=== PATIENT | male | born 1960 | race Caucasian/White ===

== ENCOUNTER 2019-10-06 11:56 | Inpatient (IN) ==
[2019-10-06] MEDS ORDERED: *HR* LORazepam 1 MG TABLET PO ONE (12:01)
[2019-10-06 12:28] LABS: Basophils # 0.1 K/mcL (0.0-0.2); Basophils % 0.5 %; Eosinophils # 0.1 K/mcL (0.0-0.6); Eosinophils % 0.8 %; Hematocrit 44.2 % (37.5-50.1); Hemoglobin 14.8 g/dL (12.9-16.9); Immature Granulocytes % 0.2 % (0-4); Lymphocytes # 3.1 K/mcL (0.6-4.6); Lymphocytes % 33.7 %; Mean Corpuscular HGB Conc 33.5 g/dL (31.6-35.5); Mean Corpuscular Hemoglobin 30.1 pg (28.0-33.3); Mean Platelet Volume 10.2 fL (9.4-12.4); Monocytes # 1.1 K/mcL (0.0-1.3); Monocytes % 11.6 %; Neutrophils # 4.9 K/mcL (1.6-8.9); Platelet Count 276 K/mcL (140-400); Red Blood Count 4.91 M/mcL (4.19-5.50); Red Cell Distribution Width 14.6 % (11.5-14.5); Segmented Neutrophils % 53.2 %; White Blood Count 9.2 K/mcL (4.3-11.1)
[2019-10-06 13:00] LABS: Acetaminophen < 10 mcg/mL (10-20); Alanine Aminotransferase 16 Units/L (7-52); Albumin 4.6 g/dL (3.5-5.7); Albumin/Globulin Ratio 1.6 (1.1-2.2); Alkaline Phosphatase 61 Units/L (34-104); Aspartate Amino Transferase 20 Units/L (13-39); BUN/Creatinine Ratio 11 (6-26); Bilirubin,Indirect 0.6 mg/dL (0.0-1.0); Bilirubin,Total 0.6 mg/dL (0.3-1.0); Blood Urea Nitrogen 9 mg/dL (8-23); Calcium 9.5 mg/dL (8.6-10.3); Carbon Dioxide 26 mEq/L (23-29); Chloride 102 mEq/L (98-107); Ethanol < 10 mg/dL (Less than 10); Globulin 2.9 g/dL (2.4-3.5); Glucose 96 mg/dL (70-105); Osmolality,Calculated 279 (280-300); Potassium 4.1 mEq/L (3.5-5.1); Salicylate < 2.5 mg/dL (15.0-30.0); Sodium 135 mEq/L (136-145); Thyroid Stimulating Hormone 2.741 mcIU/mL (0.340-5.600); Total Protein 7.5 g/dL (6.4-8.9); Valproate < 4 mcg/mL (50-100); eGFR For African Americans > 60 (> 60); eGFR For Non-African Americans > 60 (> 60)
[2019-10-06 13:39] LABS: Bilirubin,Urine Negative (Negative); Blood,Urine Negative (Negative); Clarity,Urine Clear (Clear); Color,Urine Colorless (Yellow); Glucose,Urine (UA) Normal (Normal); Ketones,Urine Negative (Negative); Leukocyte Esterase,Urine Negative (Negative); Nitrite,Urine Negative (Negative); PH,Urine 6.5 pH Units (5.0-8.0); Protein,Urine Negative (Neg-Trace); Specific Gravity,Urine 1.005 (1.010-1.025); Urobilinogen,Urine Normal (Normal)
[2019-10-06 13:45] LABS: Amphetamine Screen,Urine Negative ng/mL (Cutoff=1000); Barbiturate Screen,Urine Negative ng/mL (Cutoff=200); Benzodiazepines Screen,Urine Negative ng/mL (Cutoff=200); Cannabinoid Screen,Urine Positive ng/mL (Cutoff = 50); Cocaine Screen,Urine Negative ng/mL (Cutoff= 300); Opiate Screen,Urine Negative ng/mL (Cutoff=300); Phencyclidine Screen,Urine Negative ng/mL (Cutoff=25)
[2019-10-06] MEDS ORDERED: MOM Conc 10 ML UD.LIQ PO PRN (14:58)
[2019-10-06] MEDS ORDERED: Haloperidol Lactate 5 MG/ML VIAL IM PRN (14:58)
[2019-10-06] MEDS ORDERED: *HR* LORazepam 2 MG/ML VIAL IM PRN (14:58)
[2019-10-06] MEDS ORDERED: hydrOXYzine pamoate 25 MG CAPSULE PO PRN (14:58)
[2019-10-06] MEDS ORDERED: haloperidoL 5 MG TABLET PO PRN (14:58)
[2019-10-06] MEDS ORDERED: Acetaminophen 325 MG TABLET PO PRN (14:58)
[2019-10-06] MEDS ORDERED: *HR* LORazepam 1 MG TABLET PO PRN (14:58)
[2019-10-06] MEDS ORDERED: traZODone 50 MG TABLET PO PRN (14:58)
[2019-10-06] MEDS ORDERED: Mag Hydrox/Al Hydrox/Simeth 30 ML UDC PO PRN (14:58)
[2019-10-07] MEDS: ARIPiprazole 10 MG TABLET PO SCH (12:02)
[2019-10-07] MEDS: Budesonide/Formoterol 160/4.5 1 PUFF INH IH SCH ×2 (12:06→20:07)
[2019-10-07] MEDS: Divalproex (12 HR) 500 MG TABLET PO SCH (20:08)
[2019-10-08] MEDS ORDERED: Tiotropium 18 MCG inhalation IH SCH (07:00)
[2019-10-08] MEDS: ARIPiprazole 10 MG TABLET PO SCH (08:34)
[2019-10-08] MEDS: Divalproex (12 HR) 500 MG TABLET PO SCH (08:35)
[2019-10-08] MEDS: Budesonide/Formoterol 160/4.5 1 PUFF INH IH SCH (08:36)
[2019-10-08 08:54] VITALS: BP 115/79
== END 2019-10-08 12:20 | disposition home or self-care (01) | DRG 885 ==
LOC: EMEROOARM 11:56 → 1ANU 14:56
PROVIDERS: ADMIT Psychiatry & Neurology Psychiatry; ATTEND Psychiatry & Neurology Psychiatry